=== PATIENT | female | born 1955 | race Caucasian/White ===

== ENCOUNTER 2021-12-03 08:53 | Outpatient (CLI) | payer BC, SELFPAY ==
[2021-12-03 09:59] LABS: Anion Gap 4 mmol/L (8-16); Blood Urea Nitrogen 19 mg/dL (7-17); Carbon Dioxide 29 mmol/L (22-30); Chloride 108 mmol/L (98-107); Estimated Glomerular Filt Rate > 60; Glucose 98 mg/dL (65-110); Potassium 3.8 mmol/L (3.4-5.0); Sodium 141 mmol/L (137-145)
== END 2021-12-03 08:54 | disposition home or self-care (01) ==
LOC: ANHSURGERY 09:01
PROVIDERS: Anesthesiology; PCP Internal Medicine; Visit Provider Urology
DX: N39.3 Stress incontinence (female) (male) (principal); Z79.899 Other long term (current) drug therapy; Z01.818 Encounter for other preprocedural examination
CPT/HCPCS: 36415; 80048; 87077; 87086; 87186

== ENCOUNTER 2021-12-10 01:51 | Day surgery (SDC) | payer BC, SELFPAY ==
[2021-11-28 10:10] VITALS: BMI 30.7
--- NOTE | 2021-11-28 10:20 | PC.NURSE ---
Report to the Outpatient Waiting Room, entrance under the green pavilion located off [facility], at time _1000_ on date _12/10/21_. OR Time: _1200_. - You and your visitor will be asked a series of questions to screen for COVID 19 for your protection. - Only one visitor is allowed at this time. - The patient visitor is requested to leave or wait in car when not with patient. - A mask is required within the hospital. Patients may have clear liquids (water, carbonated beverages, clear teas, apple juice) until 3 hours prior to surgery (0900 AM) with a maximum of 20 ounces. - No food from midnight until time of surgery Take the following medications with a SIP of water the morning of surgery: _NASAL SPRAY IF NEEDED_ Medications to discontinue per DR. YORK - MELOXICAM 7 DAYS PRIOR TO SURGERY, Date to take last dose 12/06/21_ Please no make-up, nail citizen of [place], hairspray, perfume, deodorant, or body powder the day of surgery. No jewelry (including any body piercings) or valuables the day of surgery, leave them at home. Please take a shower or bath the night before, or the morning of, surgery with an antibacterial soap. Wear comfortable, loose fitting clothing. - Jewelry must be removed prior to entering the operating room. Rings and piercings that are not removed may be cut off. - The hospital will not accept responsibility for valuables. - Please leave all valuables, including medications, at home the day of surgery. If you are going home after surgery, a licensed commercial driver's license driver must drive you home. - NO public transportation without another adult. - We recommend that an adult stay with you for 24 hours following discharge. - We also recommend that you do not drive, make important decision, drink alcoholic beverages, or take any drugs that were not prescribed by your health care provider for at least 24 hours after your discharge time. Follow any additional instructions given to you from your surgeon. If you or anyone in your household have experienced Covid symptoms in the past week, please notify your surgeon or the nurse liaison at the phone number below for possible testing. Telephone instructions given to ___PT and asked if any additional questions and then verbalized understanding. Patient advised to call surgeon office or pre surgery nurse liaison [phone] if any additional questions.
--- NOTE | 2021-12-09 13:44 | P.HP_ITS ---
H&P: HPI History of Present Illness Date/Time: 12/09/21 13:44 Chief Complaint: Incontinence Narrative: 66-year-old mixed incontinence. Her overactive bladder is treated with medication. She is here today for treatment of the stress incontinence Review of Systems Review of Systems: All systems reviewed & are unremarkable except as noted in HPI and below [facility] Social History Social History Smoking status: Never smoker Second hand tobacco smoke exposure: No Alcohol intake: never Substance use: never Substance use type: does not use Spiritual care concerns: No Meds Home Medications and Allergies Home Medications Medication Instructions Recorded Confirmed Type cetirizine 10 mg capsule (Zyrtec) 10 mg PO DAILY 11/28/21 11/28/21 History fluticasone propionate 50 2 spray intranasal HS 11/28/21 11/28/21 History mcg/actuation nasal spray,suspension lisinopril 10 1 tablet DAILY 11/28/21 11/28/21 History mg-hydrochlorothiazide 12.5 mg tablet meloxicam 15 mg tablet 1 tablet HS 11/28/21 11/28/21 History mirabegron 25 mg tablet,extended 1 tablet PO HS 11/28/21 11/28/21 History release 24 hr (Myrbetriq) Allergies Allergy/AdvReac Type Severity Reaction Status Date / Time levofloxacin [From Levaquin] AdvReac SEVER Verified 11/28/21 10:05 Nausea and Vomiting Exam Narrative: alert orient x3 no acute distress normal breathing urethral mobility noted Assessment and Plan Assessment and plan (1) ANITHA (stress urinary incontinence, female): Code(s): N39.3 - Stress incontinence (female) (male) Status: Acute Assessment and Plan: urethral sling. Understands the risks of bleeding, infection, damage to the bladder or urethra, recurrence, persistence, mesh related complications, retention. Agrees to proceed
[2021-12-10] VITALS (10 sets, daily range): BP systolic 102–131; BP diastolic 41–74; PULSE 53–71; RESP 12–20; TEMP 36.4–37.1; O2SAT 95–100
--- NOTE | 2021-12-10 07:14 | WPDHPUPDATE1 ---
History and Physical Update Update Date/Time: 12/10/21 07:14 History and Physical has been reviewed, including an updated exam of the patient. There are NO changes in the patient's condition. Risks, benefits, and alternatives have been discussed and questions answered. Patient agrees to proceed with procedure.
[2021-12-10] MEDS: LACTATED RINGERS 1,000 ML 30 ML IV CONT (11:30)
--- NOTE | 2021-12-10 11:49 | P.PNAN_ITS ---
Anes - Initial Pre Proc Eval Procedure: Operation Date: 12/10/21 13:00 Proposed Procedures p Urethral Sling - Chava Myers MD Date/Time: 12/10/21 11:49 Surgeon: Chava Myers MD Pre Op Diagnosis: Stress Incontinence Patient Data Age: 66 Gender: F Height: 1.68 m Weight: 86.36 kg Allergies Allergy/AdvReac Type Severity Reaction Status Date / Time levofloxacin [From Levaquin] AdvReac Severe SEVERE Verified 12/10/21 07:23 Nausea and Vomiting Home Medications Medication Instructions Recorded Confirmed Type cetirizine 10 mg capsule (Zyrtec) 10 mg PO DAILY 11/28/21 11/28/21 History fluticasone propionate 50 2 spray intranasal HS 11/28/21 11/28/21 History mcg/actuation nasal spray,suspension lisinopril 10 1 tablet DAILY 11/28/21 11/28/21 History mg-hydrochlorothiazide 12.5 mg tablet meloxicam 15 mg tablet 1 tablet HS 11/28/21 11/28/21 History mirabegron 25 mg tablet,extended 1 tablet PO HS 11/28/21 11/28/21 History release 24 hr (Myrbetriq) Patient hx anesthesia problems: none Family hx anesthesia problems: none Results Review: All pre-operative results and documents have been reviewed as part of the pre-operative evaluation. [facility] Past Medical History Medical History (Updated 12/10/21 @ 11:50 by Chino Pillai MD) HTN (hypertension) Obesity Surgical History Surgical History (Updated 12/10/21 @ 11:50 by Chino Pillai MD) H/O: hysterectomy Social History Social History Smoking status: Never smoker Second hand tobacco smoke exposure: No Alcohol intake: never Substance use: never Substance use type: does not use Living arrangements: with family Spiritual care concerns: No Anes - Eval Final PreProcedure Day of Procedure 12/10/21 11:49 Patient weight: obese Heart: regular rate and rhythm Lungs: clear to auscultation Airway: Mallampati scale class II Neurological: alert and oriented Last oral intake: >/= 8 hours ASA classification: II Emergent: no Anesthetic plan: proceed Anesthesia type and monitoring: general LMA and standard monitoring Results Review: All pre-operative results and documents have been reviewed as part of the pre- operative evaluation. Informed Consent: The patient's anesthetic plan and its attendant risks and benefits were discussed with the patient/family/POA. Questions were solicited and answers provided to the satisfaction of the patient/family/POA.
[2021-12-10] MEDS: ceFAZolin 2 GM/D5W 50 ML 2 GM/50 ML BAG IVPB (12:28)
[2021-12-10] MEDS: LIDO 1%/EPINEPHRINE/PF 1:200,000 30 ML VIAL XX (12:46)
--- NOTE | 2021-12-10 13:01 | W.PM.PROC2 ---
Procedure Note - Detailed Date of Procedure 12/10/21 Pre-op Diagnosis Stress Incontinence Post-op Diagnosis Same Procedure Performed mid urethral sling cystoscopy Surgeon Chava Myers MD Indications This is a female with confirm stress urinary incontinence. She desires surgical correction. She understands the risks of bleeding, infection, injury to the urinary tract, vaginal mesh extrusion, urinary tract mesh erosion, obstructive voiding requiring a secondary procedure, hip and leg pain, dyspareunia, inability to improve overactive bladder symptoms. She agrees to proceed. She knows she will likely still need her Myrbetriq for overactive bladder symptoms Description of Procedure She was correctly identified. Informed consent obtained. She was brought the operating room. She was given appropriate anesthesia. She was given appropriate perioperative antibiotics. A time-out performed. I marked out the site of the inner thigh incisions. I anesthetized the skin and made those incisions. I anesthetized the anterior vaginal wall over the mid urethra. I made a 1 cm incision. I dissected out laterally taking great care not to injure the refilled vaginal wall. I passed the helical trocars. First on the left. Then on the right. I did this from the thigh incision towards the vaginal incision. The sling was connected to the trocars and brought out through the thigh incision. I tensioned the sling appropriately. I cut and the plastic sheaths. I then closed the incision with 2 0 Vicryl. On cystoscopy there is no tumors or surgical artifact. There was no surgical artifact in the urethra. I cut the excess sling material. Close incisions with glue. She was awakened and transferred to the PACU in stable condition. Implants Urethral sling Estimated Blood Loss 10 Drains No Packing No Pathology None sent Complications No immediate complications Condition Stable Disposition PACU
[2021-12-10] MEDS: oxyCODONE HCL (*CRX) 5 MG TAB IR PO (14:18)
== END 2021-12-10 15:20 | disposition home or self-care (01) ==
PROVIDERS: PCP Internal Medicine; Visit Provider Urology
PROC: (CPT 57288; principal; 2021-12-10 13:00)
DX: N39.3 Stress incontinence (female) (male) (principal); I10 Essential (primary) hypertension; E66.9 Obesity, unspecified; Z68.30 Body mass index [BMI] 30.0-30.9, adult
CPT/HCPCS: 57288; A9270; C1771; J0690; J1100; J2405; J2704; J3010; J7030; J7120